=== PATIENT | female | born 1955 | race Caucasian/White ===

== ENCOUNTER 2021-01-19 20:39 | Inpatient (IN) | payer OTHER ==
[~2021-01-19] VITALS: Ht 152.4 cm; Wt 92.3 kg
[2021-01-19] MEDS ORDERED: BECL10.6 IH (20:51)
[2021-01-19] MEDS ORDERED: ALBU6.7H9 IH (20:51)
[2021-01-19] MEDS ORDERED: IPRATROPIUM BROMIDE (0.02%) 0.5MG/2.5ML NEB HHN STA (21:31)
[2021-01-19] MEDS ORDERED: METHYLPREDNISOLONE SOD SUCC 125 MG/2 ML VIAL IV STA (21:31)
[2021-01-19] MEDS ORDERED: MAGNESIUM 2 G PREMIX 50 ML IV ONE (21:45)
[2021-01-19] MEDS ORDERED: SODIUM CHLORIDE 0.9% 1,000 ML IV ONE (21:45)
[2021-01-19 21:53] LABS: BASOPHILS % 0.4 % (0.0-2.0); EOSINOPHILS % 4.4 % (0.0-5.0); HEMATOCRIT. 39.5 % (36.0-48.0); HEMOGLOBIN. 12.8 g/dL (12.0-16.0); LYMPHOCYTES % 13.2 % (20.0-50.0); MEAN CORPUSCULAR HEMOGLOBIN 26.6 pg (28.0-32.0); MEAN CORPUSCULAR VOLUME 81.8 fL (81.0-99.0); MEAN PLATELET VOLUME 8.3 fl (7.4-10.4); MONOCYTES % 5.1 % (2.0-8.0); NEUTROPHILS % 76.9 % (40.0-76.0); PLATELET 300 x1000/uL (130-400); RED BLOOD CELL COUNT 4.83 mill/uL (4.2-5.4); RED CELL DISTRIBUTION WIDTH 14.9 % (11.6-14.6)
[2021-01-19 21:58] LABS: CHLORIDE 108 mEq/L (98-107)
[2021-01-19] MEDS: ALBUTEROL (0.083%) 2.5MG/3ML NEB HHN SCH ×2 (22:46→22:47)
[2021-01-20] VITALS (8 sets, daily range): BP systolic 132–148; BP diastolic 55–122
[2021-01-20] MEDS ORDERED: IOHEXOL-350 100 ML BOTTLE ONE (01:35)
[2021-01-20] MEDS ORDERED: NON FORMULARY PATIENT HOME MED XX PRN (10:00)
[2021-01-20] MEDS: ACETAMINOPHEN 325MG TABLET PO PRN (10:48)
[2021-01-20] MEDS ORDERED: DEXTROSE 50% WATER 50ML SYRINGE IV PRN ×2 (11:00→16:45)
[2021-01-20] MEDS: BLOOD SUGAR DIAGNOSTIC STRIP TEST SCH ×4 (12:34→20:50)
[2021-01-20] MEDS: METHYLPREDNISOLONE SOD SUCC 40 MG/ML VIAL IV SCH ×2 (13:12→21:24)
[2021-01-20] MEDS: INSULIN LISPRO 100 UNITS/ML SUBCUT SCH ×3 (13:16→21:25)
[2021-01-20] MEDS ORDERED: LEVOFLOXACIN 500MG PREMIX 100 ML IV SCH (14:00)
[2021-01-20] MEDS ORDERED: CLONIDINE 0.1MG TABLET PO PRN (16:45)
[2021-01-20] MEDS ORDERED: MAGNESIUM/ALUMINUM HYDROXIDE/SIMETHICONE 30ML UDC PO PRN (16:45)
[2021-01-20] MEDS ORDERED: HYDROCODONE/ACETAMINOPHEN 5/325MG TABLET PO PRN (16:45)
[2021-01-20] MEDS ORDERED: DOCUSATE SODIUM 100MG CAPSULE PO PRN (16:45)
[2021-01-20] MEDS ORDERED: ONDANSETRON HCL 4MG/2ML INJ IV PRN (16:45)
[2021-01-20] MEDS ORDERED: NALOXONE HCL 0.4MG/ML VIAL IV PRN (17:00)
[2021-01-20 17:32] LABS: CLARITY URINE CLEAR (CLEAR); COLOR URINE YELLOW (YELLOW); KETONES URINE NEGATIVE (NEGATIVE); LEUKOCYTE ESTERASE URINE 2+ (NEGATIVE); NITRITE URINE POSITIVE (NEGATIVE); OCCULT BLOOD URINE NEGATIVE (NEGATIVE); PROTEIN URINE NEGATIVE (NEGATIVE); SPECIFIC GRAVITY URINE 1.007 (1.005-1.030); UROBILINOGEN URINE 0.2 E.U./dL (0.2-1.0)
[2021-01-20 17:41] LABS: *AMPHETAMINES SCREEN URINE NEGATIVE (NEGATIVE); *BARBITURATES SCREEN URINE NEGATIVE (NEGATIVE)
[2021-01-20 17:42] LABS: *BENZODIAZEPINES SCREEN URINE NEGATIVE (NEGATIVE); *COCAINE SCREEN URINE NEGATIVE (NEGATIVE); CANNABINOID URINE SCREEN NEGATIVE (NEGATIVE); METHADONE URINE SCREEN NEGATIVE (NEGATIVE); OPIATES URINE SCREEN NEGATIVE (NEGATIVE); PHENCYCLIDINE URINE SCREEN NEGATIVE (NEGATIVE)
[2021-01-20] MEDS: MONTELUKAST SODIUM 10MG TABLET PO SCH (17:46)
[2021-01-20] MEDS ORDERED: AZITHROMYCIN 500 MG in DEXT 5% WATER 250 ML IV SCH (18:00)
[2021-01-21] VITALS (12 sets, daily range): BP systolic 98–136; BP diastolic 45–75
[2021-01-21] MEDS: BLOOD SUGAR DIAGNOSTIC STRIP TEST SCH ×4 (06:27→20:42)
[2021-01-21] MEDS: INSULIN LISPRO 100 UNITS/ML SUBCUT SCH ×4 (06:50→20:43)
[2021-01-21 06:53] LABS: HEMATOCRIT. 41.5 % (36.0-48.0); HEMOGLOBIN. 13.6 g/dL (12.0-16.0); MEAN CORPUSCULAR VOLUME 82.4 fL (81.0-99.0); MEAN PLATELET VOLUME 8.4 fl (7.4-10.4); PLATELET 380 x1000/uL (130-400); RED BLOOD CELL COUNT 5.03 mill/uL (4.2-5.4); RED CELL DISTRIBUTION WIDTH 15.1 % (11.6-14.6)
[2021-01-21] MEDS: METHYLPREDNISOLONE SOD SUCC 40 MG/ML VIAL IV SCH ×3 (06:55→21:18)
[2021-01-21] MEDS: ENOXAPARIN 30MG/0.3ML SYR SUBCUT SCH ×2 (08:12→20:42)
[2021-01-21] MEDS ORDERED: IPRATROPIUM/ALBUTEROL 0.5-3(2.5)MG/3ML NEB HHN PRN (08:15)
[2021-01-21 08:44] LABS: CHLORIDE 107 mEq/L (98-107)
[2021-01-21 08:51] LABS: PHOSPHORUS 4.5 mg/dL (2.5-4.9)
[2021-01-21 08:52] LABS: LDL CHOLESTEROL 175 mg/dL (5-100)
[2021-01-21 08:54] LABS: HDL CHOLESTEROL 84 mg/dL (40-59); T4 FREE 0.87 ng/dL (0.76-1.46)
[2021-01-21] MEDS ORDERED: CEFTRIAXONE 1 G PREMIX 50 ML IV SCH (11:45)
[2021-01-21] MEDS: CEFTRIAXONE 1,000 MG in DEXTROSE 5% WATER 50 ML IV SCH (14:09)
[2021-01-21] MEDS: ALBUTEROL (0.083%) 2.5MG/3ML NEB HHN SCH ×2 (14:24→20:23)
[2021-01-21] MEDS: BUDESONIDE 0.5MG/2ML NEB HHN SCH (14:24)
[2021-01-21] MEDS: ACETAMINOPHEN 325MG TABLET PO PRN (16:40)
[2021-01-21] MEDS: MONTELUKAST SODIUM 10MG TABLET PO SCH (16:40)
[2021-01-21] MEDS: ATORVASTATIN CALCIUM 10MG TABLET PO SCH (20:41)
[2021-01-21] MEDS: GUAIFENESIN 200MG/10ML SUGAR FREE UDC PO PRN (21:49)
[2021-01-21 22:09] LABS: PLATELET ESTIMATE NORMAL
[2021-01-22] VITALS (12 sets, daily range): BP systolic 101–151; BP diastolic 45–88
[2021-01-22] MEDS: BUDESONIDE 0.5MG/2ML NEB HHN SCH ×4 (01:07→21:47)
[2021-01-22] MEDS: ALBUTEROL (0.083%) 2.5MG/3ML NEB HHN SCH ×5 (01:08→21:45)
[2021-01-22] MEDS: METHYLPREDNISOLONE SOD SUCC 40 MG/ML VIAL IV SCH ×3 (05:20→21:34)
[2021-01-22] MEDS: BLOOD SUGAR DIAGNOSTIC STRIP TEST SCH ×4 (06:30→21:33)
[2021-01-22] MEDS: INSULIN LISPRO 100 UNITS/ML SUBCUT SCH ×4 (06:50→21:00)
[2021-01-22 07:52] LABS: CHLORIDE 105 mEq/L (98-107)
[2021-01-22 08:00] LABS: HEMATOCRIT. 40.2 % (36.0-48.0); HEMOGLOBIN. 13.2 g/dL (12.0-16.0); MEAN CORPUSCULAR HEMOGLOBIN 26.9 pg (28.0-32.0); MEAN PLATELET VOLUME 8.6 fl (7.4-10.4); PLATELET 331 x1000/uL (130-400); RED BLOOD CELL COUNT 4.91 mill/uL (4.2-5.4); RED CELL DISTRIBUTION WIDTH 15.1 % (11.6-14.6)
[2021-01-22] MEDS: ENOXAPARIN 30MG/0.3ML SYR SUBCUT SCH ×2 (08:23→21:33)
[2021-01-22] MEDS: CEFTRIAXONE 1,000 MG in DEXTROSE 5% WATER 50 ML IV SCH (13:24)
[2021-01-22] MEDS: MONTELUKAST SODIUM 10MG TABLET PO SCH (17:05)
[2021-01-22] MEDS: ACETAMINOPHEN 325MG TABLET PO PRN (17:08)
[2021-01-22 19:06] LABS: PLATELET ESTIMATE NORMAL
[2021-01-22] MEDS: ATORVASTATIN CALCIUM 10MG TABLET PO SCH (21:33)
[2021-01-22] MEDS: GUAIFENESIN 200MG/10ML SUGAR FREE UDC PO PRN (23:22)
[2021-01-23] VITALS (7 sets, daily range): BP systolic 109–143; BP diastolic 54–89
[2021-01-23] MEDS: METHYLPREDNISOLONE SOD SUCC 40 MG/ML VIAL IV SCH (05:49)
[2021-01-23] MEDS: BLOOD SUGAR DIAGNOSTIC STRIP TEST SCH (05:50)
[2021-01-23] MEDS: INSULIN LISPRO 100 UNITS/ML SUBCUT SCH (05:57)
[2021-01-23 07:10] LABS: BASOPHILS % 0.2 % (0.0-2.0); HEMATOCRIT. 39.7 % (36.0-48.0); HEMOGLOBIN. 12.9 g/dL (12.0-16.0); LYMPHOCYTES % 7.3 % (20.0-50.0); MEAN CORPUSCULAR HEMOGLOBIN 26.9 pg (28.0-32.0); MEAN CORPUSCULAR VOLUME 82.6 fL (81.0-99.0); MEAN PLATELET VOLUME 8.6 fl (7.4-10.4); MONOCYTES % 3.6 % (2.0-8.0); NEUTROPHILS % 88.9 % (40.0-76.0); PLATELET 296 x1000/uL (130-400); RED BLOOD CELL COUNT 4.81 mill/uL (4.2-5.4); RED CELL DISTRIBUTION WIDTH 14.7 % (11.6-14.6)
[2021-01-23 07:17] LABS: CHLORIDE 103 mEq/L (98-107)
[2021-01-23] MEDS: ENOXAPARIN 30MG/0.3ML SYR SUBCUT SCH (09:04)
[2021-01-23] MEDS: GUAIFENESIN 200MG/10ML SUGAR FREE UDC PO PRN (09:15)
[2021-01-23] MEDS: BUDESONIDE 0.5MG/2ML NEB HHN SCH (10:34)
[2021-01-23] MEDS: ALBUTEROL (0.083%) 2.5MG/3ML NEB HHN SCH (10:34)
[2021-01-23] MEDS ORDERED: MONT10TA21 MT (12:06)
[2021-01-23] MEDS ORDERED: P20 MT (12:06)
== END 2021-01-23 12:44 | disposition home or self-care (01) | DRG 141 ==
LOC: ER 20:39 → MICUSO 23:22 → EDBEDREQTM 23:28 → EDBEDREQ 23:28 → 3WST 01-20 07:26
PROVIDERS: ADMIT Internal Medicine; ATTEND Internal Medicine
DX: J45.901 Unspecified asthma with (acute) exacerbation (principal); E44.1 Mild protein-calorie malnutrition; Z20.822 Contact with and (suspected) exposure to COVID-19; N39.0 Urinary tract infection, site not specified; R73.9 Hyperglycemia, unspecified; Z68.39 Body mass index [BMI] 39.0-39.9, adult
CPT/HCPCS: 36415; 71045; 71275; 80048; 80053; 80061; 80076; 80305; 81003; 82962; 83036; 83605; 83735; 83880; 84100; 84145; 84439; 84443; 84484; 85025; 85379; 87426; 93005; 93970; 94640; 99291; J0456; J0696; J1650; J1815; J1956; J2405; J2920; J2930; J3475; J7030; J7060; J7626; Q9967